=== PATIENT | male | born 2000 | race Two or more races ===

== ENCOUNTER 2024-05-01 11:13 | Emergency (ER) | payer MEDICAID, SELFPAY ==
[2024-05-01 11:14] VITALS: BMI 23.9
--- NOTE | 2024-05-01 11:47 | XR_ITS ---
Examination: Foot, right, 3 views Technique: AP, oblique, lateral views foot, 3 views Date and time of exam: May 01, 2024 12 noon INDICATIONS: Redness swelling and pain involving the foot this week with nonhealing wound medial foot FINDINGS: Soft tissue defects adjacent to the distal first metatarsal No fracture No melissa cortical bone destruction IMPRESSION: No melissa cortical bone destruction Consider MRI foot without contrast follow-up
[2024-05-01 11:49] VITALS: BP 126/82; PULSE 82; RESP 16; TEMP 36.6; O2SAT 97; BMI 23.2
[2024-05-01 12:30] LABS: Lactate (Lactic Acid) 0.9 mMol/L (0.4-2.0)
[2024-05-01 12:33] LABS: Basophils # (Auto) 0.1 Thou/mm3 (0.0-0.2); Basophils % (Auto) 1 % (0-2.5); Eosinophils # (Auto) 0.1 Thou/mm3 (0.0-0.5); Eosinophils % (Auto) 1 % (0-10); Hematocrit 47.6 % (41.0-53.0); Hemoglobin 15.9 g/dL (13.5-16.0); Immature Granulocytes % (Auto) 0 % (0-0); Immature Granulocytes Auto 0.02 Thou/mm3 (0.00-0.00); Lymphocytes # (Auto) 1.3 Thou/mm3 (1.0-4.8); Lymphocytes % (Auto) 15 % (10-50); Mean Corpuscular HGB Conc 33.4 g/dl (31.0-37.0); Mean Corpuscular Hemoglobin 27.8 pg (25.0-35.0); Mean Corpuscular Volume 83 fL (80-100); Monocytes # (Auto) 0.8 Thou/mm3 (0.0-0.8); Monocytes % (Auto) 10 % (0-12); Neutrophils # (Auto) 6.1 Thou/mm3 (1.8-7.7); Neutrophils % (Auto) 74 % (37-80); Nucleated Red Blood Cell % 0 /100 WBC (0); Platelet Count 379 Thou/mm3 (140-440); RDW Standard Deviation 39.5 fL (35.1-43.9); Red Blood Count 5.71 Miln/mm3 (4.50-5.90); White Blood Count 8.3 Thou/mm3 (3.8-10.6)
[2024-05-01 12:53] LABS: Sed Rate (ESR) 39 mm/hr (0-15)
[2024-05-01 13:00] LABS: Alanine Aminotransferase 14 U/L (10-49); Albumin, Serum 4.9 gm/dL (3.5-5.0); Albumin/Globulin Ratio 1.5 (1.2-2.2); Alkaline Phosphatase 86 U/L (46-116); Anion Gap 8 (7-16); Aspartate Amino Transferase 22 U/L (0-34); BUN/Creatinine Ratio 12 Ratio (12-20); Bilirubin,Total 0.5 mg/dL (0.3-1.2); Blood Urea Nitrogen 12 mg/dL (9-23); C-Reactive Protein 1.1 mg/dL (0.0-0.9); Calcium 9.8 mg/dL (8.3-10.6); Calcium (Corrected) 9.8 mg/dL (8.5-10.1); Carbon Dioxide 29.5 mMol/L (20.0-31.0); Chloride 98 mMol/L (98-107); Estimated Creatinine Clearance 112.1 mL/min (>60); Globulin 3.3 gm/dL (2.3-3.5); Glucose 93 mg/dL (74-106); Osmolality,Calculated 269 (275-295); Potassium 4.2 mMol/L (3.4-5.1); Procalcitonin 0.09 ng/ml (0.0-0.49); Sodium 135 mMol/L (136-145); Total Protein 8.2 gm/dL (5.7-8.2); eGFR > 60 See Note
--- NOTE | 2024-05-01 13:32 | PD.EDSKIN ---
ED Skin Abcess FB-RME/HPI General Chief complaint: Skin/Abscess/Foreign Body Stated complaint: POSSIBLE RT FOOT INFECTION Time Seen by Provider: 05/01/24 11:24 Arrival date/time: 05/01/24 11:13 24-year-old male presents to the emergency department today stating is currently homeless patient reports that he has a wound on his right foot on the dorsal aspect patient reports that he had a blister which he popped since then the wound has worsened Limitations: no limitations Related Data Previous Rx's ?Medication ?Instructions ?Recorded bacitracin 500 unit/gram topical 1 applic topical TID 7 days #28.4 05/01/24 ointment grams clindamycin HCl 300 mg capsule 300 mg PO TID 7 days #21 caps 05/01/24 ibuprofen 600 mg tablet 600 mg PO Q6H #30 tabs 05/01/24 Allergies Allergy/AdvReac Type Severity Reaction Status Date / Time No Known Allergies Allergy Verified 05/01/24 11:16 Review of Systems Review of Systems Systems Reviewed: All systems reviewed, normal except as documented Constitutional Constitutional: Reports system reviewed and no additional complaints, except as documented, Denies fever(s) and Denies headache(s) Eyes Eyes: Reports system reviewed and no additional complaints, except as documented and Denies blurry vision ENT Ears, Nose, Mouth, and Throat: Reports system reviewed and no additional complaints, except as documented, Denies headache(s), Denies nasal congestion and Denies nasal discharge Cardiovascular Cardiovascular: Reports system reviewed and no additional complaints, except as documented, Denies chest pain and Denies dyspnea Respiratory Respiratory: Reports system reviewed and no additional complaints, except as documented, Denies chest congestion, Denies cough and Denies dyspnea Gastrointestinal Gastrointestinal: Reports system reviewed and no additional complaints, except as documented and Denies abdominal pain Integumentary/Breasts Skin/Breast: Reports system reviewed and no additional complaints, except as documented, Denies rash and Reports wounds (Infection right foot) Neurologic Neurologic: Reports system reviewed and no additional complaints, except as documented, Reports as per HPI and Denies headache(s) Past Medical History Past Medical History CARDIAC: Positive Hypertension; Negative Congestive Heart Failure RESPIRATORY: Negative Chronic Obstructive Pulmonary Disease (COPD) GENITOURINARY: Negative Renal Disease ENDOCRINE: Negative Diabetes Mellitus Type 1 or Diabetes Mellitus Type 2 Social History SMOKING STATUS: Current every day smoker SUBSTANCE USE: marijuana ED Exam General Limitations: Present no limitations General appearance: Present alert and in no apparent distress Head Head exam: Present atraumatic Eye Eye exam: Present normal appearance, PERRL and EOMI ENT ENT exam: Present normal exam, normal oropharynx and mucous membranes moist Neck Neck exam: Present normal inspection, full ROM and trachea midline Chest Chest inspection: Present normal inspection and symmetric chest wall rise Respiratory Respiratory exam: Present normal lung sounds bilaterally Cardiovascular Cardiovascular exam: Present regular rate, normal rhythm and normal heart sounds Abdominal Exam Abdominal exam: Present soft and normal bowel sounds Extremities Exam Extremities exam: Present full ROM, tenderness, normal capillary refill and other (Right foot wound dorsal aspect); Absent joint swelling Back Exam Back exam: Present normal inspection and full ROM Neurological Exam Neurological exam: Present alert, oriented X3 and CN II-XII intact Psychiatric Psychiatric exam: Present normal affect and normal mood Skin Skin exam: Present warm, dry and other (Right foot wound dorsal aspect approximately 2 cm diameter) Course Quality Measures none Orders Category Date Time Status XR foot comp RT min 3V Stat Exams 05/01/24 11:47 Completed Blood Culture (Lab) Stat Lab 05/01/24 12:17 Received CBC Stat Lab 05/01/24 12:17 Completed CMP [Comprehensive Metabolic Panel] Stat Lab 05/01/24 12:17 Completed CRP [C-Reactive Protein] Stat Lab 05/01/24 12:17 Completed ESR [Sed Rate (ESR)] Stat Lab 05/01/24 12:17 Completed Lactic Acid [Lactate (Lactic Acid)] Stat Lab 05/01/24 11:47 Completed Procalcitonin Stat Lab 05/01/24 12:17 Completed Ibuprofen Tab [Motrin Tab] Med 05/01/24 13:32 Discontinued 600 mg PO X1 ONE Lidocaine 1% 20 ml [Xylocaine 1% 20 ML] Med 05/01/24 13:32 Discontinued 2.1 ml INFL X1 ONE cefTRIAXone [Rocephin] Med 05/01/24 13:32 Discontinued 1,000 mg IM X1 ONE Vital Signs Vital signs: Vital Signs Temperature 97.9 F 05/01/24 11:49 Pulse Rate 82 05/01/24 11:49 Respiratory Rate 16 05/01/24 11:49 Blood Pressure 126/82 05/01/24 11:49 Pulse Oximetry (%) 97 05/01/24 11:49 Oxygen Delivery Method Room Air 05/01/24 11:49 O2 saturation 97% room air within normal limits Skin / Abscess / Foreign Body MDM Narrative MDM Narrative:: 24-year-old male presents to the emergency department today stating is currently homeless patient reports that he has a wound on his right foot on the dorsal aspect patient reports that he had a blister which he popped since then the wound has worsened On exam patient has mild swelling and does have a wound which appears to be mildly infected to the dorsal aspect of the right foot Lab work obtained as well as imaging Imaging shows no evidence of bony abnormality lab work reviewed Patient given antibiotics wound care performed patient given medication to go home with as well as wound care dressings Patient discharged home in no distress to follow-up with primary care doctor in the next 24 to 48 hours and for any worsening symptoms to return to the ER immediately Patient data External records reviewed:: [facility] previous records Clinical information provided by:: patient Social determinants that could affect healthcare access:: housing Patient has the following chronic illnesses:: See history How is presenting disease/condition affected by chronic disease/condition?: exacerbated by Evaluation data The following diagnostics were reviewed and interpreted by me:: lab results and radiology exam(s) Lab and/or radiology exams considered but not ordered:: Labs radiology obtain Interpretation Summary: Reviewed by me Medications / Prescriptions Medications or Prescriptions considered but not ordered:: Given Medication administrations:: Medication Administration History Discontinued Medications Ceftriaxone Sodium (Ceftriaxone Sod Inj 1,000 Mg Vial) 1,000 mg IM X1 ONE Stop: 05/01/24 13:33 Last Admin: 05/01/24 13:55 Dose: 1,000 mg Documented By: MICHI Ibuprofen (Ibuprofen Tab 600 Mg Tablet) 600 mg PO X1 ONE Stop: 05/01/24 13:33 Last Admin: 05/01/24 13:56 Dose: 600 mg Documented By: MICHI Lidocaine HCl (Lidocaine Hcl 1% 20 Ml Vial) 2.1 ml INFL X1 ONE Stop: 05/01/24 13:33 Last Admin: 05/01/24 13:55 Dose: 2.1 ml Documented By: MICHI Given Consultations Consultation(s) initiated? (list below): No Diagnosis Skin/Abscess Differential Diagnosis: abscess of skin or subcutaneous tissue and cellulitis Most likely diagnosis given after review of the tests above:: Infection Admission Indicated Admission indicated?: not indicated Admission Request Was there a request for admission?: No Disposition Plan Disposition Plan: Discharge Discharge Attestation Discharge Attestation: The patient and all family members were given an opportunity to ask questions and understood the discharge instructions. Discharge instructions specifically effects, indications for sooner follow up or return to the emergency department, and the expected course of current diagnosis. Patient condition: Stable Discharge Plan Plan Patient Disposition: HOME (Self Care) Disposition Comment: Stable Prescriptions/Referrals Prescriptions/Med Rec: New bacitracin 500 unit/gram ointment 1 applic topical TID 7 Days Qty: 28.4 0RF clindamycin HCl 300 mg capsule 300 mg PO TID 7 Days Qty: 21 0RF ibuprofen 600 mg tablet 600 mg PO Q6H Qty: 30 0RF Referrals: No Primary/Family,Physician [Primary Care Provider] - 05/02/24 Problem List Clinical Impression: Wound of right foot Patient/Caregiver Discharge Instructions Additional Instructions: Please follow up with your primary care doctor in the next 24-48hrs for any worsening symptoms return here immediately Print Language: Turkish Stand Alone Forms: Nikki Award Info., Patient Portal Info Letter PA/COMMERCIAL SALES MANAGER Supervising Physician DAMION/DAVID Supervising Physician:
[2024-05-01] MEDS: LIDOCAINE HCL 1% 20 ML VIAL 2.1 ML INFL (13:55)
[2024-05-01] MEDS: cefTRIAXone SOD INJ 1,000 MG VIAL 1000 MG IM (13:55)
[2024-05-01] MEDS: IBUPROFEN TAB 600 MG TABLET PO (13:56)
== END 2024-05-01 14:35 | disposition home or self-care (01) ==
PROVIDERS: Nurse Practitioner Primary Care; Emergency Provider Emergency Medicine
DX: S90.821A Blister (nonthermal), right foot, initial encounter (principal); X58.XXXA Exposure to other specified factors, initial encounter; Z59.00 Homelessness unspecified
CPT/HCPCS: 36415; 73630; 80053; 83605; 84145; 85025; 85652; 86140; 87040; 96372; 99283; J0696; J3490; A9270

== ENCOUNTER 2024-06-21 10:35 | Emergency (ER) | payer SELFPAY ==
[2024-06-21 10:57] VITALS: BP 113/61; PULSE 114; RESP 16; TEMP 36.7; O2SAT 95; BMI 24.4
--- NOTE | 2024-06-21 11:29 | EDNOTE_ITS ---
<Statement entered by Gauri Dougherty MD - 06/26/24 07:18> As co-signing physician, I was present and available for consult prn. I concur with the plan and care as documented by the midlevel provider. ED Skin Abcess FB-RME/HPI General Chief complaint: Skin/Abscess/Foreign Body Stated complaint: PAIN/REDNESS/SWELLING TO LEFT ARM Time Seen by Provider: 06/21/24 11:07 Source: patient Arrival date/time: 06/21/24 10:35 24-year-old male with no known medical history presents to the emergency room with a chief complaint of pain, swelling, redness to the left elbow x 2 days Mode of arrival: ambulatory Limitations: no limitations Related Data Previous Rx's ?Medication ?Instructions ?Recorded clindamycin HCl 150 mg capsule 450 mg (3 x 150 mg) PO TID 7 days 06/21/24 #63 caps Allergies Allergy/AdvReac Type Severity Reaction Status Date / Time No Known Allergies Allergy Verified 06/21/24 10:38 Review of Systems Review of Systems Systems Reviewed: All systems reviewed, normal except as documented Constitutional Constitutional: Reports system reviewed and no additional complaints, except as documented, Denies fatigue, Denies fever(s), Denies headache(s) and Denies weakness Eyes Eyes: Reports system reviewed and no additional complaints, except as documented, Denies blurry vision and Denies change in vision ENT Ears, Nose, Mouth, and Throat: Reports system reviewed and no additional complaints, except as documented, Denies otalgia, Denies headache(s), Denies nasal congestion, Denies throat swelling and Denies vertigo Cardiovascular Cardiovascular: Reports system reviewed and no additional complaints, except as documented, Denies chest pain, Denies dyspnea and Denies dyspnea on exertion Respiratory Respiratory: Reports system reviewed and no additional complaints, except as documented, Denies chest congestion, Denies cough, Denies dyspnea, Denies dyspnea on exertion and Denies wheezing Gastrointestinal Gastrointestinal: Reports system reviewed and no additional complaints, except as documented, Denies abdominal pain, Denies cramping, Denies nausea and Denies vomiting Genitourinary Genitourinary: Reports system reviewed and no additional complaints, except as documented, Denies dysuria and Denies hematuria Musculoskeletal Musculoskeletal: Reports system reviewed and no additional complaints, except as documented and Denies back pain Integumentary/Breasts Skin/Breast: Reports system reviewed and no additional complaints, except as documented, Reports erythema and Denies wounds Neurologic Neurologic: Reports system reviewed and no additional complaints, except as documented, Denies confusion, Denies headache(s), Denies lack of coordination, Denies vertigo and Denies weakness Psychiatric Psychiatric: Reports system reviewed and no additional complaints, except as documented, Denies anxiety, Denies confusion, Denies depression, Denies paranoia, Denies suicidal ideation and Denies tactile hallucinations Endocrine Endocrine: Reports system reviewed and no additional complaints, except as documented and Denies fatigue Hematologic/Lymphatic Hematologic/Lymphatic: Reports system reviewed and no additional complaints, except as documented and Denies lymphadenopathy Allergic/Immunologic Allergic/Immunologic: Reports system reviewed and no additional complaints, except as documented, Denies throat swelling, Denies urticaria and Denies wheezing ED Exam General Limitations: Present no limitations General appearance: Present alert and in no apparent distress Head Head exam: Present atraumatic Eye Eye exam: Present normal appearance, PERRL and EOMI ENT ENT exam: Present normal exam, normal oropharynx and mucous membranes moist Neck Neck exam: Present normal inspection, full ROM and trachea midline Chest Chest inspection: Present normal inspection and symmetric chest wall rise Respiratory Respiratory exam: Present normal lung sounds bilaterally Cardiovascular Cardiovascular exam: Present regular rate, normal rhythm and normal heart sounds Abdominal Exam Abdominal exam: Present soft and normal bowel sounds Extremities Exam Extremities exam: Present normal inspection and full ROM Back Exam Back exam: Present normal inspection and full ROM Neurological Exam Neurological exam: Present alert, oriented X3 and CN II-XII intact Psychiatric Psychiatric exam: Present normal affect and normal mood Skin Skin exam: Present warm, dry, intact and normal color Expanded Skin Exam Type of lesion: Present abscess Distribution: Present LUE Description: Present tenderness, erythematous and swelling Body image: 2 1. Patient has a abscess to the left elbow area it appears to be from an insect bite. There is erythema swelling at this time it is not ready for an incision and drainage antibiotics were given to the patient. Course Quality Measures none Orders Category Date Time Status Clindamycin Vial [Cleocin vial] Med 06/21/24 10:56 Discontinued 600 mg IM X1 ONE Vital Signs Vital signs: Vital Signs Temperature 98.1 F 06/21/24 10:57 Pulse Rate 114 H 06/21/24 10:57 Respiratory Rate 16 06/21/24 10:57 Blood Pressure 113/61 06/21/24 10:57 Pulse Oximetry (%) 95 06/21/24 10:57 Oxygen Delivery Method Room Air 06/21/24 10:57 O2 saturation 95% within normal limits Skin / Abscess / Foreign Body MDM Narrative MDM Narrative:: 24-year-old male with no known medical history presents to the emergency room with a chief complaint of pain, swelling, redness to the left elbow x 2 days Patient is hemodynamically stable and in no apparent distress Physical examination shows tenderness mild swelling and erythema to the left elbow area. There is a scab in place patient states yesterday there was drainage but no pus. At this time there is no abscess ready to be drained. Antibiotics were given to the patient for cellulitis and patient was discharged and educated to follow-up with his primary care provider and return to the emergency room for any evidence of worsening signs or symptoms Patient data External records reviewed:: [facility] previous records Clinical information provided by:: patient Social determinants that could affect healthcare access:: housing Patient has the following chronic illnesses:: No chronic illness How is presenting disease/condition affected by chronic disease/condition?: no chronic disease Evaluation data The following diagnostics were reviewed and interpreted by me:: lab results and radiology exam(s) Lab and/or radiology exams considered but not ordered:: Labs and radiology exams considered and ordered Interpretation Summary: N/A Medications / Prescriptions Medications or Prescriptions considered but not ordered:: Rx given Medication administrations:: Medication Administration History Discontinued Medications Clindamycin Phosphate (Clindamycin Phos Inj 150 Mg/Ml Vial 6 Ml) 600 mg IM X1 ONE Stop: 06/21/24 10:57 Rx given Consultations Consultation(s) initiated? (list below): No Diagnosis Skin/Abscess Differential Diagnosis: abscess of skin or subcutaneous tissue, insect bites, contact dermatitis and other (Cellulitis) Most likely diagnosis given after review of the tests above:: Cellulitis of left elbow Admission Indicated Admission indicated?: not indicated Admission Request Was there a request for admission?: No Disposition Plan Disposition Plan: Discharge Discharge Attestation Discharge Attestation: The patient and all family members were given an opportunity to ask questions and understood the discharge instructions. Discharge instructions specifically effects, indications for sooner follow up or return to the emergency department, and the expected course of current diagnosis. Patient condition: Stable Discharge Plan Plan Patient Disposition: HOME (Self Care) Disposition Comment: Stable Prescriptions/Referrals Prescriptions/Med Rec: New clindamycin HCl 150 mg capsule 450 mg PO TID 7 Days Qty: 63 0RF Problem List Clinical Impression: Cellulitis Patient/Caregiver Discharge Instructions Education Materials: Discharge Instructions for Cellulitis, ED Cellulitis Additional Instructions: Please follow-up with your primary care provider in the next 24 to 48 hours. At this time the swelling in your left elbow is not ready for an incision and drainage. Antibiotics were sent to your pharmacy please pick them up and take them as indicated. For any evidence of worsening signs or symptoms please return to the emergency room immediately Print Language: Maltese Stand Alone Forms: Nikki Award Info., Patient Portal Info Letter PA/SENIOR HARDWARE DESIGN ENGINEER Supervising Physician PA/DAVID Supervising Physician: Dr. DOUGHERTY
[2024-06-21] MEDS: CLINDAMYCIN PHOS INJ 150 MG/ML VIAL 6 ML 600 MG IM (11:44)
== END 2024-06-21 11:50 | disposition home or self-care (01) ==
LOC: SERX 12:19
PROVIDERS: Emergency Provider Emergency Medicine
DX: L03.114 Cellulitis of left upper limb (principal)
CPT/HCPCS: 96372; 99283; J0736

== ENCOUNTER 2025-03-05 11:45 | Emergency (ER) | payer SELFPAY ==
[2025-03-05 11:45] VITALS: BMI 23.6
[2025-03-05 11:54] VITALS: BP 139/83; PULSE 97; RESP 18; TEMP 36.8; O2SAT 97
--- NOTE | 2025-03-05 12:16 | XR_ITS ---
Examination: Hand, right 3 views Technique: Hand AP, oblique, lateral 3 views Date and time of exam: March 05, 2025, 1225 hours INDICATIONS: Animal bite to the hand 2 days ago with pain FINDINGS: No acute fracture Soft tissue swelling about the second digit No foreign body No melissa cortical bone destruction IMPRESSION: No foreign body. No melissa cortical bone destruction
--- NOTE | 2025-03-05 12:18 | PD.EDSKIN ---
ED Skin Abcess FB-RME/HPI General Chief complaint: Skin/Abscess/Foreign Body Stated complaint: RT INDEX FINGER PAIN Time Seen by Provider: 03/05/25 11:54 Source: patient Arrival date/time: 03/05/25 11:45 Mode of arrival: ambulatory Limitations: no limitations RME / HPI RME / HPI narrative: Patient is a 25-year-old male with no significant past medical history is in emergency ferment concerns for swelling to his first digit of his right hand for the last 4 days. Denies fevers chills nausea vomiting cough runny nose recent trauma sick contacts changes to activities. Patient denies any IV drug use. Patient does use methamphetamines. No allergies to medications. Does not take any medications. Related Data Previous Rx's ?Medication ?Instructions ?Recorded ibuprofen 600 mg tablet 600 mg PO Q6H #30 tabs 05/01/24 Allergies Allergy/AdvReac Type Severity Reaction Status Date / Time No Known Allergies Allergy Verified 03/05/25 11:47 ED Exam General Limitations: Present no limitations General appearance: Present alert and other (Uncomfortable secondary to pain) Head Head exam: Present atraumatic and normocephalic Eye Eye exam: Present normal appearance and PERRL ENT ENT exam: Present normal exam and normal oropharynx Neck Neck exam: Present normal inspection Chest Chest inspection: Present symmetric chest wall rise Respiratory Respiratory exam: Absent respiratory distress Cardiovascular Cardiovascular exam: Present regular rate Abdominal Exam Abdominal exam: Absent distention Extremities Exam Extremities exam: Present other (Left hand normal, right hand with significant swelling of the second digit. Digit appears like a sausage, tenderness palpation along the flexor and extensor tendon. Patient unable to flex nor extend the finger, however position of comfort is in a partially flexed position. Patient has pain with p) Neurological Exam Neurological exam: Present alert, oriented X3 and other Psychiatric Psychiatric exam: Present normal affect and normal mood Course Quality Measures none Orders Category Date Time Status XR hand comp RT min 3V Stat Exams 03/05/25 12:16 Completed Blood Culture (Lab) Stat Lab 03/05/25 12:43 Received CBC Stat Lab 03/05/25 12:39 Completed CMP [Comprehensive Metabolic Panel] Stat Lab 03/05/25 12:39 Completed CRP [C-Reactive Protein] Stat Lab 03/05/25 12:39 Completed ESR [Sed Rate (ESR)] Stat Lab 03/05/25 12:39 Completed PT [Prothrombin Time with INR] Stat Lab 03/05/25 12:39 Received Piper/Tazo Inj [Zosyn Inj] 4.5 gm Med 03/05/25 12:17 Discontinued Sodium Chloride 0.9% (Pop) [NS 0.9% mini bag] 100 ml IV X1 Vancomycin Inj 1,500 mg Med 03/05/25 12:45 Discontinued Sodium Chloride 0.9% 500 ml [Ns] 500 ml IV X1 Vancomycin Pharmacy to Dose Med 03/05/25 12:16 Discontinued 1 each IV STAT STA oxyCODONE/APAP 5/325 [Percocet 5/325] Med 03/05/25 12:16 Discontinued 1 tab PO X1 ONE Vital Signs Vital signs: Vital Signs Temperature 98.2 F 03/05/25 11:54 Pulse Rate 97 03/05/25 11:54 Respiratory Rate 18 03/05/25 11:54 Blood Pressure 139/83 H 03/05/25 11:54 Pulse Oximetry (%) 97 03/05/25 11:54 Oxygen Delivery Method Room Air 03/05/25 11:54 Skin / Abscess / Foreign Body MDM Narrative MDM Narrative:: Patient is a 25-year-old male is in the emerged from concerns for swelling to the second digit of his right hand. Vital signs and exam as listed. Concern for flexor tenosynovitis, abscess of the second digit, cellulitis, others. Patient is not septic at this time. Ordered x-ray of the right hand, labs antibiotics, offered medication for symptom relief. Patient will likely need to be transferred for higher level of care for hand surgery. I advised the patient that it is important that he stay in the emergency department given that this is a life-threatening condition and can also affect his hand, he can become septic, resulting in , amputation or severe disability. Labs with evidence of leukocytosis 16 no left shift. No significant acute electrolyte nor metabolic disturbance. CRP is 5. X-ray of the hand without any evidence of cortical traction. Clinically concerned that patient does have signs synovitis. I ordered IV antibiotics for the patient. Went to reevaluate patient, nursing staff attempted to look patient multiple times, I also went to look for patient multiple times however patient has eloped from the emergency department. Patient data External records reviewed:: [facility] previous records Clinical information provided by:: patient Social determinants that could affect healthcare access:: substance use Patient has the following chronic illnesses:: Recurrent skin infections How is presenting disease/condition affected by chronic disease/condition?: exacerbated by Evaluation data The following diagnostics were reviewed and interpreted by me:: lab results and radiology exam(s) Lab and/or radiology exams considered but not ordered:: None Interpretation Summary: See MDM Medications / Prescriptions Medications or Prescriptions considered but not ordered:: None Medication administrations:: Medication Administration History Discontinued Medications Piperacillin Sod/Tazobactam (Sod 4.5 gm/ Sodium Chloride) 100 mls @ 200 mls/hr IV X1 ONE; Protocol Stop: 03/05/25 12:46 Vancomycin HCl 1,500 mg/ (Sodium Chloride) 500 mls @ 200 mls/hr IV X1 ONE Stop: 03/05/25 15:14 Oxycodone/Acetaminophen (Oxycodone/Apap 5/325 Tablet) 1 tab PO X1 ONE Stop: 03/05/25 12:17 Pharmacy Consult (Vancomycin Pharmacy To Dose 1 Each Each) 1 each IV STAT STA Stop: 03/05/25 12:17 See above Consultations Consultation(s) initiated? (list below): Yes Diagnosis Skin/Abscess Differential Diagnosis: other Most likely diagnosis given after review of the tests above:: Flexor tenosynovitis Admission Indicated Admission indicated?: not indicated (Will transfer patient) Admission Request Was there a request for admission?: No Disposition Plan Disposition Plan: other (specify) (Eloped) Discharge Plan Plan Patient Disposition: Elopement Prescriptions/Referrals Prescriptions/Med Rec: No Action ibuprofen 600 mg tablet 600 mg PO Q6H Qty: 30 0RF Referrals: No Primary/Family,Physician [Primary Care Provider] - In 1 week Problem List Clinical Impression: Flexor tenosynovitis of finger Patient/Caregiver Discharge Instructions Print Language: American
[2025-03-05 13:02] LABS: Basophils # (Auto) 0.1 Thou/mm3 (0.0-0.2); Basophils % (Auto) 0 % (0-2.5); Eosinophils # (Auto) 0.1 Thou/mm3 (0.0-0.5); Eosinophils % (Auto) 0 % (0-10); Hematocrit 43.5 % (41.0-53.0); Hemoglobin 15.0 g/dL (13.5-16.0); Immature Granulocytes Auto 0.05 Thou/mm3 (0.00-0.00); Lymphocytes # (Auto) 1.6 Thou/mm3 (1.0-4.8); Lymphocytes % (Auto) 10 % (10-50); Mean Corpuscular HGB Conc 34.5 g/dl (31.0-37.0); Mean Corpuscular Hemoglobin 28.7 pg (25.0-35.0); Mean Corpuscular Volume 83 fL (80-100); Monocytes # (Auto) 1.5 Thou/mm3 (0.0-0.8); Monocytes % (Auto) 9 % (0-12); Neutrophils # (Auto) 13.4 Thou/mm3 (1.8-7.7); Neutrophils % (Auto) 80 % (37-80); Nucleated Red Blood Cell # 0.00 Thou/mm3 (0.00-0.00); Nucleated Red Blood Cell % 0 /100 WBC (0); Platelet Count 288 Thou/mm3 (140-440); RDW Standard Deviation 40.3 fL (35.1-43.9); Red Blood Count 5.23 Miln/mm3 (4.50-5.90); White Blood Count 16.7 Thou/mm3 (3.8-10.6)
[2025-03-05 13:23] LABS: Alanine Aminotransferase 17 U/L (10-49); Albumin, Serum 4.9 gm/dL (3.5-5.0); Albumin/Globulin Ratio 2.0 (1.2-2.2); Alkaline Phosphatase 84 U/L (46-116); Anion Gap 11 (7-16); Aspartate Amino Transferase 22 U/L (0-34); BUN/Creatinine Ratio 11 Ratio (12-20); Bilirubin,Total 0.8 mg/dL (0.3-1.2); Blood Urea Nitrogen 12 mg/dL (9-23); C-Reactive Protein 5.0 mg/dL (0.0-0.9); Calcium 9.5 mg/dL (8.3-10.6); Calcium (Corrected) 9.5 mg/dL (8.5-10.1); Carbon Dioxide 25.6 mMol/L (20.0-31.0); Chloride 101 mMol/L (98-107); Creatinine (Component) 1.1 mg/dL (0.6-1.3); Estimated Creatinine Clearance 101.0 mL/min (>60); Globulin 2.4 gm/dL (2.3-3.5); Glucose 117 mg/dL (74-106); Osmolality,Calculated 276 (275-295); Potassium 3.9 mMol/L (3.4-5.1); Sodium 138 mMol/L (136-145); Total Protein 7.3 gm/dL (5.7-8.2); eGFR > 60 See Note
[2025-03-05 13:51] LABS: Sed Rate (ESR) 27 mm/hr (0-15)
--- NOTE | 2025-03-05 14:05 | PC.NURSE ---
@1332 - PT CALLED FROM ED [facility] ED ENTRANCE AT THIS TIME; NO ANSWER. @1354 - PT CALLED FROM ED [facility] ED ENTRANCE AGAIN AT THIS TIME; NO ANSWER. @1404 - PT CALLED FROM ED [facility] ED ENTRANCE AT THIS TIME FOR LAST CALL; NO ANSWER. PT ELOPED.
[2025-03-05 14:32] LABS: INR 1.0 (0.9-1.3); Prothrombin Time 10.3 Seconds (9.0-12.2)
== END 2025-03-05 14:07 | disposition left against medical advice (07) ==
LOC: SERX 13:02
PROVIDERS: Emergency Provider Emergency Medicine
DX: L02.91 Cutaneous abscess, unspecified (principal)
CPT/HCPCS: 36415; 73130; 80053; 85025; 85610; 85652; 86140; 87040; 99281

== ENCOUNTER 2025-03-13 07:05 | Emergency (ER) | payer SELFPAY ==
[2025-03-13 07:06] VITALS: BMI 21.9
[2025-03-13 07:14] VITALS: BP 117/80; PULSE 93; RESP 18; TEMP 36.9; O2SAT 99
[2025-03-13 07:16] VITALS: BMI 21.3
--- NOTE | 2025-03-13 07:24 | PD.EDRME ---
Rapid Medical Screening Exam RME Arrival date/time: 03/13/25 07:05 25-year-old male presents to the emergency room today for complaints of right hand index finger swelling patient reports symptom onset about 10 days ago patient was on the but eloped from the ER Chief Complaint: General Adult/Misc Complain Time Seen by Provider: 03/13/25 07:08 Vital signs: Vital Signs Temperature 98.4 F 03/13/25 07:14 Pulse Rate 93 03/13/25 07:14 Respiratory Rate 18 03/13/25 07:14 Blood Pressure 117/80 03/13/25 07:14 Pulse Oximetry (%) 99 03/13/25 07:14 Oxygen Delivery Method Room Air 03/13/25 07:14 Vital signs reviewed by provider: Yes RME Narrative: On exam patient appears to have significant swelling of the right index finger consistent with infection Exam: On exam patient appears to have significant swelling of the right index finger consistent with infection I suspect patient has tenosynovitis Neurological: patient GCS 15 Skin : swelling erythema right index finger Clinical Impression: Lab work imaging ordered I will transfer the patient to higher level of care which will require orthopedics and probable surgical intervention
--- NOTE | 2025-03-13 08:11 | PC.NURSE ---
Addendum entered by Hugo Cortes RN 03/13/25 09:19: @0900 - [facility]TR[facility] AT THIS TIME FOR LAST CALL; NO ANSWER. PT ELOPED. Addendum entered by Hugo Cortes RN 03/13/25 08:28: @0827 - [facility] ED [facility]TR[facility] AT THIS TIME FOR SECOND CALL; NO ANSWER. Original Note: @0811 - [facility] ED [facility]TR[facility] AT THIS TIME; NO ANSWER.
== END 2025-03-13 09:00 | disposition left against medical advice (07) ==
LOC: SERX 08:41
PROVIDERS: Emergency Provider Emergency Medicine
DX: Z53.21 Procedure and treatment not carried out due to patient leaving prior to being seen by health care provider (principal)
CPT/HCPCS: 80053; 83605; 84145; 85025; 85610; 85652; 86140; 87040; 99281

== ENCOUNTER 2025-04-08 10:06 | Emergency (ER) | payer SELFPAY ==
[2025-04-08 10:09] VITALS: BMI 23.5
--- NOTE | 2025-04-08 10:13 | XR_ITS ---
EXAMINATION: XR hand comp RT min 3V ORDERING PROVIDER: DAVID Isaacs HISTORY: r/o osteo TECHNIQUE: 3 radiographs of the right hand were obtained. COMPARISON: 03/05/2025 right hand radiographs. FINDINGS: Comminuted, displaced fracture of the distal phalanx of the index finger. Fracture includes the tuft, as well as the neck and base with intra-articular extension. There is volar dislocation of the distal aspect of the phalanx. There is an overlying soft tissue defect with punctate hyperdensities along the volar aspect of the finger and significant surrounding soft tissue swelling. Compared to prior, there is also periosteal reaction about the shaft of the middle phalanx. Severe soft tissue swelling involving the index finger. IMPRESSION: 1. Comminuted displaced intra-articular fracture of the index finger distal phalanx with involvement of the tuft, which may represent an open fracture in the proper clinical setting. 2. Overlying soft tissue defect with punctate densities, likely foreign bodies. 3. Interval development of periosteal reaction about the middle phalanx. This could be from reactive process to include osteomyelitis. 4. Severe soft tissue swelling involving the index finger. Query if patient has signs and symptoms of tenosynovitis. Patient may benefit from hand surgery evaluation.
--- NOTE | 2025-04-08 10:14 | PD.EDRME ---
Rapid Medical Screening Exam RME Arrival date/time: 04/08/25 10:06 25-year-old male with no known medical history presents to the emergency room with an open wound to his right hand second digit. Patient has swelling, limited range of motion, erythema, tenderness and drainage from the finger. I have greeted and performed a focused initial assessment of this patient. A comprehensive ED assessment and evaluation of the patient, analysis of all test results, and completion of the medical decision making process will be conducted by additional ED providers. Time Seen by Provider: 04/08/25 10:12 Vital signs reviewed by provider: Yes Exam: Patient has erythema, limited range of motion, tenderness, and drainage from the second digit in his right hand. GCS 15 Clinical Impression: Flexor tenosynovitis/cellulitis/osteomyelitis of the right hand second digit
[2025-04-08 10:18] VITALS: BP 136/85; PULSE 80; RESP 16; TEMP 36.6; O2SAT 98
[2025-04-08 10:32] LABS: Lactate (Lactic Acid) 1.6 mMol/L (0.4-2.0)
[2025-04-08 10:38] LABS: Basophils # (Auto) 0.1 Thou/mm3 (0.0-0.2); Basophils % (Auto) 1 % (0-2.5); Eosinophils # (Auto) 0.2 Thou/mm3 (0.0-0.5); Eosinophils % (Auto) 2 % (0-10); Hematocrit 46.5 % (41.0-53.0); Hemoglobin 15.2 g/dL (13.5-16.0); Immature Granulocytes Auto 0.07 Thou/mm3 (0.00-0.00); Lymphocytes # (Auto) 2.3 Thou/mm3 (1.0-4.8); Lymphocytes % (Auto) 17 % (10-50); Mean Corpuscular HGB Conc 32.7 g/dl (31.0-37.0); Mean Corpuscular Hemoglobin 28.0 pg (25.0-35.0); Mean Corpuscular Volume 86 fL (80-100); Monocytes # (Auto) 1.0 Thou/mm3 (0.0-0.8); Monocytes % (Auto) 7 % (0-12); Neutrophils # (Auto) 9.6 Thou/mm3 (1.8-7.7); Neutrophils % (Auto) 72 % (37-80); Nucleated Red Blood Cell # 0.00 Thou/mm3 (0.00-0.00); Nucleated Red Blood Cell % 0 /100 WBC (0); Platelet Count 335 Thou/mm3 (140-440); RDW Standard Deviation 42.9 fL (35.1-43.9); Red Blood Count 5.43 Miln/mm3 (4.50-5.90); White Blood Count 13.3 Thou/mm3 (3.8-10.6)
[2025-04-08 10:41] LABS: Collection Type, Urine Clean Catch; Squamous Epithelial Cell,Urine 0 /hpf (0-5); WBC,Urine 0 /hpf (0-5)
[2025-04-08 10:55] LABS: Amphetamine/Methamp Scrn,U Positive (Negative); Barbiturate Screen,Urine Negative (Negative); Benzodiazepines Screen,Urine Negative (Negative); Benzoylecgonine Screen, Ur Negative (Negative); Fentanyl Screen,Urine Negative (Negative); Opiate Screen,Urine Negative (Negative); THC Screen,Urine Positive (Negative)
--- NOTE | 2025-04-08 10:58 | PC.NURSE ---
Patient presents to ED with PPD at bedside for medical clearance due to right index finger swelling and wound care. Per patient x1 wk ago with poss spider bite, noted finger swollen, warm to touch and wound is dry. Patient educated on plan of care.
[2025-04-08 11:02] LABS: Alanine Aminotransferase 14 U/L (10-49); Albumin, Serum 4.5 gm/dL (3.5-5.0); Albumin/Globulin Ratio 1.4 (1.2-2.2); Alkaline Phosphatase 85 U/L (46-116); Anion Gap 8 (7-16); Aspartate Amino Transferase 19 U/L (0-34); BUN/Creatinine Ratio 16 Ratio (12-20); Bilirubin,Total 0.3 mg/dL (0.3-1.2); Blood Urea Nitrogen 16 mg/dL (9-23); Calcium 8.9 mg/dL (8.3-10.6); Calcium (Corrected) 8.9 mg/dL (8.5-10.1); Carbon Dioxide 30.4 mMol/L (20.0-31.0); Chloride 102 mMol/L (98-107); Creatinine (Component) 1.0 mg/dL (0.6-1.3); Estimated Creatinine Clearance 107.4 mL/min (>60); Globulin 3.2 gm/dL (2.3-3.5); Glucose 95 mg/dL (74-106); Osmolality,Calculated 280 (275-295); Potassium 4.2 mMol/L (3.4-5.1); Procalcitonin 0.06 ng/ml (0.0-0.49); Sodium 140 mMol/L (136-145); Total Protein 7.7 gm/dL (5.7-8.2); eGFR > 60 See Note
--- NOTE | 2025-04-08 11:13 | PD.EDADULT ---
ED General RME/HPI General Chief complaint: Animal Bite Stated complaint: MED CLEARANCE, BITE TO RIGHT INDEX FINGER Time Seen by Provider: 04/08/25 10:12 Arrival date/time: 04/08/25 10:06 CC: Right index finger pain swelling and redness HPI patient is not sure how this evolved. The patient is under arrest, with fellow and he warrants at this time, not sure how long the patient will be incarcerated. Patient is not sure how long it has been going on but states he thinks it is a spider bite . Localized pain is 1-2 on a pain scale. Patient defined eyes fever chills shortness of breath difficulty breathing. Patient complains of pain with flexion extension but is able to fully flex and extend the finger without complications. RME / HPI RME / HPI narrative: 04/08/25 10:06 25-year-old male with no known medical history presents to the emergency room with an open wound to his right hand second digit. Patient has swelling, limited range of motion, erythema, tenderness and drainage from the finger. I have greeted and performed a focused initial assessment of this patient. A comprehensive ED assessment and evaluation of the patient, analysis of all test results, and completion of the medical decision making process will be conducted by additional ED providers. Exam: Patient has erythema, limited range of motion, tenderness, and drainage from the second digit in his right hand. GCS 15 Impression: Flexor tenosynovitis/cellulitis/osteomyelitis of the right hand second digit Related Data Previous Rx's ?Medication ?Instructions ?Recorded ibuprofen 600 mg tablet 600 mg PO Q6H #30 tabs 05/01/24 sulfamethoxazole 800 1 tab PO BID 7 days #14 tabs 04/08/25 mg-trimethoprim 160 mg tablet (Bactrim DS) Allergies Allergy/AdvReac Type Severity Reaction Status Date / Time No Known Allergies Allergy Verified 03/13/25 07:09 Review of Systems Review of Systems Narrative Review of Systems: GEN: No fever, no chills, no weight loss EYES: No discharge, no visual changes, no pain HEENT: No ear pain, no congestion, no sore throat PULM: No shortness of breath, no cough, no congestion CV: No chest pain, no dyspnea on exertion, no palpitations GI: No nausea, no vomiting, no diarrhea, no pain, no constipation : No frequency, no urgency, no dysuria MUSC/SKEL: + joint pain, no back pain SKIN: No rash PSYCH: No hallucinations, no depression HEME/LYMPH: No easy bleeding or bruising tendencies NEURO: No weakness, no headache Past Medical History Past Medical History CARDIAC: Positive Hypertension; Negative Congestive Heart Failure RESPIRATORY: Negative Chronic Obstructive Pulmonary Disease (COPD) GENITOURINARY: Negative Renal Disease ENDOCRINE: Negative Diabetes Mellitus Type 1 or Diabetes Mellitus Type 2 Social History SMOKING STATUS: Heavy (> 1 pack/day) SUBSTANCE USE: marijuana ED Exam Narrative Physical exam: [General: Disheveled, ill kempt, homeless, but not in any acute distress Head normocephalic HEENT: Eyes pupils are PERRLA EOMs are intact. Within acceptable limits Neck is supple nontender Chest equal chest rise nontender to palpation Respiratory: Clear to auscultation no wheezes crackles or rubs CV: Rate rhythm is regular no murmurs rubs or clicks Abdomen is soft nontender no masses positive bowel sounds all 4 quadrants Back: No CVA tenderness no spinous process tenderness from cervical spine thoracic and lumbar spine Skin: Right index finger: Patient has skin avulsion over the palmar aspect of the DIP with surrounding eschar, entire finger is erythematous and edematous. Patient able to flex and extend freely the finger without complication. Tenderness site specific to the tip of the finger. No streaking in the dorsum of the hand arm axilla. Intact no petechiae rash induration ulceration or crepitus Extremities: Right hand second digit full flexion extension cap refill in the digits less than 2 seconds. moving all other extremities against resistance cap refill less than 2 seconds neurosensory intact Neuro: Awake alert oriented x3 Glascow coma 15 no focal deficits] Course Course Course Narrative: Patient has a mild leukocytosis, but a full range of motion of the index finger including flexion extension. Patient is incarcerated, if he has sided and released he is to return to the emergency room for an additional injection of Rocephin, and then citrus picker the prescription sent over to [place] [facility] across the street. If he remains incarcerated he is to be started on antibiotics from the custodial healthcare system for the same complaint. Quality Measures none Orders Category Date Time Status Miscellaneous Nursing Order NOW Care 04/08/25 11:12 Completed XR hand comp RT min 3V Stat Exams 04/08/25 10:13 Completed Blood Culture (Lab) Stat Lab 04/08/25 10:20 Results CBC Stat Lab 04/08/25 10:24 Completed CMP [Comprehensive Metabolic Panel] Stat Lab 04/08/25 10:24 Completed Drug Screen,Urine Stat Lab 04/08/25 10:36 Completed Lactate (Lactic Acid) Stat Lab 04/08/25 10:24 Completed Procalcitonin Stat Lab 04/08/25 10:24 Completed UA [Urinalysis] Stat Lab 04/08/25 10:36 Completed Urine Culture Stat Lab 04/08/25 10:36 Received TET,DIP/PERT AC (Adult)-Tdap [Boostrix Adult (Tdap) Med 04/08/25 11:28 Discontinued Vacc] 0.5 ml IMI .ONCE ONE cefTRIAXone [Rocephin] 1,000 mg Med 04/08/25 11:12 Discontinued Lidocaine 1% Pf 5 ml [Xylocaine 1% Pf 5 ml] 2.1 ml IM X1 Vital Signs Vital signs: Vital Signs Temperature 97.8 F 04/08/25 10:18 Pulse Rate 80 04/08/25 10:18 Respiratory Rate 16 04/08/25 10:18 Blood Pressure 136/85 H 04/08/25 10:18 Pulse Oximetry (%) 98 04/08/25 10:18 Oxygen Delivery Method Room Air 04/08/25 10:18 Discharge Plan Plan Patient Disposition: Care Home/Court/Law Prescriptions/Referrals Prescriptions/Med Rec: New sulfamethoxazole-trimethoprim [Bactrim DS] 800-160 mg tablet 1 tab PO BID 7 Days Qty: 14 0RF No Action ibuprofen 600 mg tablet 600 mg PO Q6H Qty: 30 0RF Referrals: No Primary/Family,Physician [Primary Care Provider] - In 1 week Problem List Clinical Impression: Medical clearance for incarceration, Finger fracture, right, Cellulitis of finger Patient/Caregiver Discharge Instructions Other Activity Instructions:: Antibiotics has been sent to [place] [facility] across the street from the hospital. If you are released to go to the hospital emergency room for another injection of Rocephin, and then if possible citrus picker the antibiotics at the pharmacy and take them for the following week. If incarcerated over lengthy period of time let the jailers know that they need to start you on oral antibiotics for your finger. Education Materials: ED Cellulitis Print Language: Nicaraguan PA/SENIOR ARCHITECT/DESIGN MANAGER Supervising Physician DAMION/SENIOR ARCHITECT/DESIGN MANAGER Supervising Physician: Amaury Garrido ENP MDM Clinical Information Provided by: patient and law enforcement Medical Records reviewed [facility] Meds/Rx considered, not ordered None Labs/Rad/Tests considered, not ordered None Chronic Illness/Social Conditions which may negatively complicate care or outcome(s)-explain: Homeless and ETOH/drugs/substance abuse EKG EKG not done Labs Labs: interpreted by me Lab(s) Interpretation(s): CBC shows a mild leukocytosis of 13.3 no anemia thrombocytopenia CMP shows no significant electrolyte imbalances renal impairment transaminitis or T. bili elevation. UDS is positive for methamphetamines and THC. Imaging Imaging interpretation: interpreted by ne Imaging Interpretation(s): X-ray of the hand shows soft tissue edema, moderately displaced tuft fracture just distal to the DIP Medication Administration(s) none Medication Administration History Discontinued Medications Ceftriaxone Sodium 1,000 mg/ (Lidocaine HCl 2.1 ml) 0 mg IM X1 ONE Stop: 04/08/25 11:13 Last Admin: 04/08/25 11:20 Dose: 1,000 mg Documented By: LAKHWINDER Diphtheria/Tetanus/Acell Pertussis (Diphth,Pertuss(Acell),Tet Vac 0.5 Ml Syr- Adult) 0.5 ml IMi .ONCE ONE Stop: 04/08/25 11:29 Last Admin: 04/08/25 11:45 Dose: 0.5 ml Documented By: LAKHWINDER Diagnosis Differential Diagnosis ED Complaint MDM: Tenosynovitis, cellulitis, finger fracture
[2025-04-08 11:20] LABS: Bilirubin,Urine Negative (Negative); Blood,Urine Negative (Negative); Clarity,Urine Clear (Clear/Hazy); Color,Urine Lt-Yellow (Lt Yel-Yel); Glucose, Urine Negative (Negative); Ketones,Urine Negative (Negative); Leukocyte Esterase,Urine Negative (Negative); Nitrite,Urine Negative (Negative); PH,Urine 7.0 (5.0-7.0); Protein,Urine Negative (Neg - Trace); RBC,Urine < 1 /hpf (0-3); Specific Gravity,Urine 1.022 (1.001-1.035); Urobilinogen,Urine Negative mg/dL (0.0-1.0)
[2025-04-08] MEDS: DIPHTH,PERTUSS(ACELL),TET VAC 0.5 ML SYR- ADULT IMi (11:45)
== END 2025-04-08 11:56 ==
PROVIDERS: Nurse Practitioner Family; Emergency Provider Emergency Medicine
DX: Z02.89 Encounter for other administrative examinations (principal); S62.630A Displaced fracture of distal phalanx of right index finger, initial encounter for closed fracture; L03.011 Cellulitis of right finger; X58.XXXA Exposure to other specified factors, initial encounter; Z59.00 Homelessness unspecified; Z23 Encounter for immunization
CPT/HCPCS: 36415; 73130; 80053; 80307; 81001; 83605; 84145; 85025; 87040; 87086; 90471; 90715; 96372; 99283; J0696; J3490